=== PATIENT | male | born 1955 | race Caucasian/White ===

== ENCOUNTER 2016-11-01 12:12 | Emergency (ER) | payer OTHER ==
[~2016-11-01] VITALS: Ht 162.6 cm; Wt 114.3 kg
[2016-11-01] MEDS ORDERED: TESSALON PERLE100 MG PO (15:03)
[2016-11-01] MEDS ORDERED: ZITHROMAX Z-PA250 MG PO (15:03)
[2016-11-01] MEDS ORDERED: VENTOLIN HFA18 GM IH (15:16)
[2016-11-01 15:23] VITALS: BP 137/86
== END 2016-11-01 15:26 | disposition home or self-care (01) ==
LOC: EME 12:12
DX: J20.9 Acute bronchitis, unspecified (principal); E11.9 Type 2 diabetes mellitus without complications
CPT/HCPCS: 71020; 87502; 87651 90; 94640; 99281; 99284